=== PATIENT | male | born 1965 | race Caucasian/White ===

== ENCOUNTER 2017-02-12 05:52 | Day surgery (SDC) | payer OTHER ==
[2017-02-06 10:11] VITALS: BMI 32.5
[2017-02-12] MEDS ORDERED: PROPOFOL 20 ML ONE ×2 (07:25)
[2017-02-12] MEDS ORDERED: SUCCINYLCHOLINE CHLORIDE 200 MG/10 ML VIAL ONE (07:25)
[2017-02-12] MEDS ORDERED: LIDOCAINE HCL/PF 2% SDV 5ML VIAL ONE (07:29)
[2017-02-12] MEDS ORDERED: DEXAMETHASONE SOD PHOSPHATE 4 MG/1 ML VIAL ONE (07:29)
[2017-02-12] MEDS ORDERED: ONDANSETRON 4 MG/2 ML VIAL ONE (07:29)
[2017-02-12] MEDS ORDERED: KETOROLAC TROMETHAMINE 30 MG/1 ML VIAL ONE (07:29)
[2017-02-12] MEDS ORDERED: ceFAZolin SODIUM 1 GM VIAL ONE (07:29)
[2017-02-12] MEDS ORDERED: BUPIVACAINE HCL/PF 2.5 MG/ML - 30 ML VIAL IJ ONE (07:43)
[2017-02-12] MEDS ORDERED: BUPIVACAINE HCL/PF 0.25% (2.5MG/ML) 10 ML VIAL IJ ONE ×2 (08:33→08:56)
[2017-02-12] MEDS ORDERED: oxyCODONE HCL 5 MG TABLET PO PRN ×2 (09:09)
[2017-02-12] MEDS ORDERED: PROMETHAZINE HCL 25 MG/1 ML VIAL IVPUSH PRN (09:09)
[2017-02-12] MEDS ORDERED: ONDANSETRON 4 MG/2 ML VIAL IVPUSH PRN (09:09)
--- NOTE | 2017-02-12 09:37 | OP ---
DATE OF OPERATION: 02/12/2017 PREOPERATIVE DIAGNOSIS: Right knee medial, lateral meniscal tears. POSTOPERATIVE DIAGNOSIS: Right knee medial, lateral meniscal tears, as well as osteoarthritis. PROCEDURE: Right knee arthroscopy with partial medial, partial lateral meniscectomy. SURGEON: Pollo Herzog MD ANESTHESIA: General. POSTOPERATIVE CONDITION: Stable. COMPLICATIONS: None. TOURNIQUET TIME: 34 minutes. BLOOD LOSS: Minimal. INDICATIONS: This is a pleasant, 51-year-old gentleman who had been suffering from persistent knee pain. MRI demonstrated medial and lateral meniscal tears in the setting of some mild arthritic change. Treatment options including nonoperative versus operative management were discussed. Operative risks reviewed in detail including bleeding, infection, neurovascular injury, need for further surgery, postoperative pain and stiffness, progression of osteoarthritis. We discussed medical risks such as heart attack, stroke, DVT, PE, and . I addressed all the patient's questions and concerns. He voiced understanding and elected to proceed. DESCRIPTION OF PROCEDURE: Patient was brought to the operating room where general anesthesia was administered. The right lower extremity was then prepped and draped in the usual sterile fashion. A preoperative dose of antibiotics was given, and the usual timeout procedure was performed. At this point, the portal sites were marked out. They were injected subcutaneously using 0.25% Marcaine. An 11 blade was now used to establish a lateral portal. The arthroscope was passed into the knee. Examination of the patellofemoral joint demonstrated moderate arthrosis with patches of full-thickness cartilage loss on both the trochlear and patellar sides. The arthroscope was now passed into the notch. Here, the ACL and PCL were visualized to be intact. Passing the arthroscope into the medial compartment, a medial portal was now established under spinal needle localization. The medial compartment was examined, demonstrating also here full-thickness cartilage loss along the most medial portion of the medial femoral condyle and deep fissuring and fraying of the tibial side. Initially, no gross meniscus tear was seen. The probe was passed, and there was found to be a peripheral tear in the posterior horn of the medial meniscus. After examination, this tear was debrided down using a combination of meniscal biters as well as the shaver. The arthroscope was then passed into the lateral compartment. Here, a large complex tear was noted at the junction of the posterior horn and body. Again, utilizing the same tools, this tear was debrided down to a stable base. The excess debris was now irrigated out of the knee. The portals were sutured using 3-0 nylon after removal of the fluid from the knee. The patient was placed into a compressive wrap. Tourniquet was let down. The patient was extubated and transferred to recovery room in stable condition. Carlo RAY/[id number]
[2017-02-12 11:01] VITALS: BP 116/74; PULSE 60; TEMP 98.2
== END 2017-02-12 11:01 | disposition home or self-care (01) ==
LOC: FASU 05:52
PROVIDERS: ATTEND Orthopaedic Surgery Sports Medicine
PROC: 0SBC4ZZ Excision of Right Knee Joint, Percutaneous Endoscopic Approach (ICD-10-PCS; 2017-02-12)
PROC: 0SBC4ZZ Excision of Right Knee Joint, Percutaneous Endoscopic Approach (ICD-10-PCS; principal; 2017-02-12 08:18)
DX: M23.252 Derangement of posterior horn of lateral meniscus due to old tear or injury, left knee (principal); M23.251 Derangement of posterior horn of lateral meniscus due to old tear or injury, right knee; M17.11 Unilateral primary osteoarthritis, right knee
CPT/HCPCS: 94760

== ENCOUNTER 2020-07-26 22:55 | Emergency (ER) | payer OTHER ==
[2020-07-26 23:07] VITALS: BP 119/78; PULSE 77; TEMP 98.4; BMI 35.9
[2020-07-27] MEDS ORDERED: HYDROCORTISONE 0.5% TOPICAL CREAM 30 GM TUBE TP ONE (01:14)
== END 2020-07-27 01:58 | disposition home or self-care (01) ==
LOC: JER 22:55
DX: L50.9 Urticaria, unspecified (principal)
CPT/HCPCS: 99283-25

== ENCOUNTER 2023-06-20 23:27 | Emergency (ER) | payer OTHER ==
[2023-06-20 23:32] VITALS: BP 125/77; PULSE 62; RESP 19; TEMP 97.8; BMI 30.8
[2023-06-21] MEDS ORDERED: DIPHTH,PERTUSS(ACELL),TET 0.5 ML DISP.SYRIN IM ONE (00:08)
[2023-06-21] MEDS ORDERED: BACITRACIN 0.9 GM PACKET ONE (00:08)
[2023-06-21] MEDS: DIPHTH,PERTUSS(ACELL),TET 0.5 ML DISP.SYRIN IM ONE (00:12)
[2023-06-21] MEDS: BACITRACIN 0.9 GM PACKET TP ONE (00:13)
[2023-06-21] MEDS ORDERED: ACETAMINOPHEN 325 MG TABLET (FP) ONE (00:16)
[2023-06-21] MEDS: ACETAMINOPHEN 500 MG TABLET (FP) PO ONE (00:18)
[2023-06-21] MEDS ORDERED: CEPHALEXIN MONOHYDRATE 500 MG CAPSULE (UD) PO ONE (01:19)
[2023-06-21] MEDS ORDERED: CEPHALEXIN MONOHYDRATE 500 MG CAPSULE (UD) ONE (01:22)
[2023-06-24] MEDS ORDERED: DEXAMETHASONE SOD PHOSPHATE 10 MG/1 ML VIAL ONE (15:17)
[2023-06-26] MEDS ORDERED: INSULIN (NOVOLOG) ASPART 100 UNITS/ML 10ML VIAL ONE ×2 (07:50)
== END 2023-06-21 01:27 | disposition home or self-care (01) ==
LOC: JER 23:27
PROC: 0HQ1XZZ Repair Face Skin, External Approach (ICD-10-PCS; principal; 2023-06-20)
PROC: 3E0234Z Introduction of Serum, Toxoid and Vaccine into Muscle, Percutaneous Approach (ICD-10-PCS; 2023-06-21)
DX: S01.81XA Laceration without foreign body of other part of head, initial encounter (principal); V18.0XXA Pedal cycle driver injured in noncollision transport accident in nontraffic accident, initial encounter
CPT/HCPCS: 12011-25; 70450-TC; 70486-TC; 72125-TC; 90471; 90715; 99284-25

== ENCOUNTER 2023-06-27 22:23 | Emergency (ER) | payer OTHER ==
[2023-06-27 22:32] VITALS: BP 132/72; PULSE 58; RESP 18; TEMP 98.1; BMI 34.0
== END 2023-06-27 23:21 | disposition home or self-care (01) ==
LOC: JER 22:23
DX: Z48.02 Encounter for removal of sutures (principal)
CPT/HCPCS: 99281-25